=== PATIENT | female | born 1995 | race Caucasian/White ===

== ENCOUNTER 2018-01-05 20:50 | Emergency (ER) | payer BC ==
--- NOTE | 2018-01-05 21:14 | EDPHY ---
HPI/HX/ROS/PE/MDM Narrative: CHIEF COMPLAINT: Rash on left knee HISTORY OF PRESENT ILLNESS: The patient is a 22 y/o female complaining of a worsening rash on her left knee which she noticed upon waking up this morning. She has been camping the past several days but is unsure if the rash is from camping or shaving. Denies injuring knee or falling. Denies new sexual partners. No fever, chills, chest pain, shortness of breath, palpitations, nausea, vomiting, diarrhea, urinary complaints, headache, lightheadedness. REVIEW OF SYSTEMS: Aside from elements discussed in the HPI, a comprehensive 10-point review of systems was reviewed and is negative. PAST MEDICAL HISTORY: Denies SOCIAL HISTORY: Friend at bedside, student at , originally from [place] VITAL SIGNS: Reviewed by me GENERAL: Well-developed, well-nourished, resting comfortably in no respiratory distress. EXTREMITIES: No trauma. No edema. Range of motion is normal throughout. NEURO: Alert and oriented, grossly nonfocal. SKIN: 8-10 pustular lesions on right knee, left knee normal. Warm and dry. PSYCHIATRIC: Normal mentation, no agitation. Portions of this note were transcribed by a biomedical engineering technologist. I personally performed a history, physical exam, medical decision making, and confirmed accuracy of information the transcribed note. ED Course: The patient is a 22 y/o female presenting with a worsening rash on her left knee which she noticed upon waking up this morning. On exam the patient has 8- 10 pustular lesions on her right knee. Her left knee is normal. There is no warmth or swelling to the knee. It is possible that this is a folliculitis. Laboratory and imaging results are not indicated at this time. She is denying pain medications at this time. 2127: Reassessed patient and discussed Keflex prescription, her first dose will be given in the emergency department. I have also advised her to use over-the- counter antibiotic ointment. Return precautions provided; patient is comfortable with this plan. MDM: Differential diagnoses for the patient's symptom complex was considered including but not limited to local skin irritation, razor burn, cellulitis, folliculitis. General Time Seen by Provider: 01/05/18 21:12 Initial Vital Signs: Initial Vital Signs Temperature (C) 37.2 C 01/05/18 21:16 Heart Rate 79 01/05/18 21:16 Respiratory Rate 18 01/05/18 21:16 Blood Pressure 120/72 01/05/18 21:16 O2 Sat (%) 95 01/05/18 21:16 O2 Delivery Mode Room Air Allergies/Adverse Reactions: No Known Allergies Allergy (Verified 01/05/18 21:20) Home Medications: Medication Instructions Recorded Miscellaneous Medical Supply [NO 1 ea MISC AD 08/28/12 HOME MEDS] Cephalexin [Keflex (RX)] 500 mg PO QID 4 Days cap 01/05/18 Departure - Departure Disposition: Home, Routine, Self-Care Clinical Impression: Rash Cellulitis Qualifiers: Site of cellulitis: extremity Site of cellulitis of extremity: lower extremity Laterality: left Qualified Code(s): L03.116 - Cellulitis of left lower limb Condition: Good Instructions: Cephalexin (By mouth), Acute Rash (ED) Additional Instructions: Take Keflex as prescribed. Use topical [id number] antibiotic cream on the rash. Do not place a band-aid on the rash. Use Tylenol as directed for pain. Follow-up with your primary doctor within 72 hours. Return to the Emergency Department for fever, chest pain, shortness of breath, increasing pain or other worsening of condition. Referrals: Stefani Monson MD [Primary Care Provider] - As per Instructions Prescriptions: Cephalexin [Keflex (RX)] 500 mg PO QID 4 Days cap Report Scribed for: Kallie Holden Report Scribed by: Danita Nunez Date of Report: 01/05/18 Time of Report: 21:14
[2018-01-05 21:20] VITALS: BP 120/72
[2018-01-05] MEDS ORDERED: CEPHALEXIN 500MG PREPACK#4 BTL TAKEHOME ONE (21:23)
== END 2018-01-05 21:37 | disposition home or self-care (01) ==
LOC: CED 20:50
DX: R21 Rash and other nonspecific skin eruption (principal); L03.116 Cellulitis of left lower limb